=== PATIENT | male | born 1970 | race Caucasian/White ===

== ENCOUNTER 2023-10-07 20:45 | Emergency (ER) | payer SELFPAY ==
[2023-10-07] MEDS ORDERED: Sodium Chloride 0.9% 10 ML Syringe FLUSH PRN (20:56)
[2023-10-07] MEDS ORDERED: Sodium Chloride 0.9% 20 ML SDV IV PRN (20:56)
[2023-10-07] MEDS ORDERED: Sodium Chloride 0.9% 2.5 ML Syringe FLUSH PRN (20:56)
[2023-10-07] MEDS ORDERED: HYDROmorphone 0.5 MG/0.5 ML Syringe IVPUSH PRN (20:57)
[2023-10-07] MEDS: Iopamidol 755 MG/ML 500 ML Multipack Bottle IVPUSH ONE (21:07)
[2023-10-07 21:15] LABS: BASOPHILS ABSOLUTE AUTO 0.08 K/uL (0.00-0.20); BASOPHILS PERCENT AUTO 0.6 % (0.0-1.0); EOSINOPHILS PERCENT AUTO 2.2 % (0.0-6.0); HEMATOCRIT 45.3 % (42.0-52.0); HEMOGLOBIN 15.4 g/dL (14.0-18.0); IMMATURE GRAN ABSOLUTE AUTO 0.06 K/uL (0.00-0.05); IMMATURE GRAN PERCENT AUTO 0.4 % (0.0-0.4); LYMPHOCYTES ABSOLUTE AUTO 3.85 K/uL (1.00-4.80); LYMPHOCYTES PERCENT AUTO 28.6 % (24.0-44.0); MEAN CORPUSCULAR HEMOGLOBIN 30.8 pg (28.0-32.0); MEAN CORPUSCULAR VOLUME 90.6 fL (83.0-99.0); MEAN PLATELET VOLUME 9.9 fL (9.4-12.4); MONOCYTES ABSOLUTE AUTO 1.04 K/uL (0.00-0.80); MONOCYTES PERCENT AUTO 7.7 % (0.0-8.0); NEUTROPHILS ABSOLUTE AUTO 8.11 K/uL (1.80-7.70); NEUTROPHILS PERCENT AUTO 60.5 % (41.0-71.0); PLATELET COUNT,PLT 314 K/uL (150-400); WHITE BLOOD CELL COUNT,WBC 13.44 K/uL (3.9-11.3)
[2023-10-07] MEDS: Acetaminophen 500 MG Tab PO ONE (21:27)
[2023-10-07] MEDS: Ondansetron 4 MG/2 ML SDV IVPUSH ONE (21:27)
[2023-10-07 21:46] LABS: ALBUMIN 3.9 g/dL (3.4-5.0); BILIRUBIN TOTAL 0.4 mg/dL (0.2-1.0); CALCIUM 9.2 mg/dL (8.5-10.1); CARBON DIOXIDE,CO2 27.3 mmol/L (21.0-32.0); CREATININE 1.1 mg/dL (0.8-1.3); EST CRCL DRUG DOSING (CG) 85.57 mL/min; POTASSIUM,K 3.8 mmol/L (3.5-5.1); PROTEIN TOTAL,TP 7.8 g/dL (6.4-8.2)
[2023-10-07] MEDS: Ketorolac 30 MG/ML SDV IVPUSH ONE (22:37)
== END 2023-10-07 23:02 | disposition home or self-care (01) ==
LOC: MW.ED 20:45
DX: S20.212A Contusion of left front wall of thorax, initial encounter (principal); S39.91XA Unspecified injury of abdomen, initial encounter; W06.XXXA Fall from bed, initial encounter
CPT/HCPCS: 36415; 71260; 74177; 80053; 83690; 85025; 93005; 99285; Q9967; 93010; 99282